=== PATIENT | male | born 1955 | race Caucasian/White ===

== ENCOUNTER → 2021-08-10 | Outpatient (CLI) | payer MEDICARE ==
--- NOTE | 2021-08-10 22:47 | CT ---
EXAMINATION TYPE: CT chest w con DATE OF EXAM: 08/10/2021 COMPARISON: None available HISTORY: CHEST PAIN CT DLP: 871.6 mGycm Automated exposure control for dose reduction was used. TECHNIQUE: CT scan of the chest is performed with IV Contrast, patient injected with 80ML mL of Isovue 300. FINDINGS: LUNGS: Extensive bilateral predominantly basal patchy areas of thick consolidation demonstrating grou ndglass opacity with air bronchogram within, associated with scattered multiple faint pulmonary nodul es most evident in the upper and midlung zones, mainly seen peripherally and of subcentimeter size. N o traction bronchiectasis, honeycombing or cystic changes. Patent trachea and main bronchi. No sizabl e pleural effusion. MEDIASTINUM: No gross cardiomegaly. Coronary and arterial atherosclerotic calcifications. The pulmona ry trunk measures 4.5 cm consistent with pulmonary hypertension. No pericardial effusion. 11 mm subca rinal lymph node with 11 mm precarinal retrocaval lymph node. Other scattered subcentimeter hilar and mediastinal lymph nodes. No pathologically enlarged axillary lymph nodes. OTHER: Previous cholecystectomy. Right lateral hepatic lobe marginally calcified area measuring 15 m m, incompletely characterized by this CT scan. Fatty infiltration of the pancreas. Atrophic right kid kel. Degenerative changes of the thoracic spine. No aggressive bone lesion. IMPRESSION: The above described extensive pulmonary changes are nonspecific and could be related to pulmonary inf ection (including atypical infection), organizing pneumonia, alveolar hemorrhage, alveolar proteinosi s, hypersensitivity pneumonitis among other pulmonary pathologies. Sequela of previous extensive infection and fibrotic changes can't be excluded. Recommend clinical co rrelation, further workup and pulmonology consultation. Follow-up CT scan in 3-6 months can be consid ered for reassessment. Other incidental findings as described above.
== END | disposition home or self-care (01) ==
LOC: RADCTMAIN 16:50
PROVIDERS: ATTEND Internal Medicine Critical Care Medicine
DX: R91.8 Other nonspecific abnormal finding of lung field (principal)
CPT/HCPCS: 82565; 84520; 71260; 36415; Q9967

== ENCOUNTER → 2021-09-03 | Outpatient (CLI) | payer MEDICARE | END | disposition home or self-care (01) | LOC: RADPETMAIN 13:07 | PROVIDERS: ATTEND Nurse Practitioner Adult Health | DX: Z53.9 Procedure and treatment not carried out, unspecified reason (principal) ==

== ENCOUNTER → 2021-09-11 | Outpatient (CLI) | payer MEDICARE ==
--- NOTE | 2021-09-12 22:28 | PE ---
EXAMINATION TYPE: PET CT fusion skull to thigh DATE OF EXAM: 09/11/2021 COMPARISON: Prior CT August 10, [address] April 16, 2021 HISTORY: Solitary pulmonary nodule. Abnormal CT. TECHNIQUE: Following the intravenous administration of 12.45 mCi of F-18 FDG, whole body images are performed from the skull base to the midthigh. Images are reviewed on the computer in the coronal, a xial, and sagittal planes. Reconstructed rotating images are created on independent workstation and reviewed on the computer. A localization and attenuation correction CT is performed in conjunction with the PET scan. The blood glucose level equals 156 SCAN: Initial Scan FINDINGS: Evaluation is suboptimal secondary to patient's large body habitus. SKULL BASE AND NECK: No areas of abnormal hypermetabolic uptake. CHEST, MEDIASTINUM, AND HILAR REGION: Continued improvement in peribronchial and bronchovascular cons olidations greatest in the lower lungs which became more diffuse groundglass opacities on last CT and current PET/CT. No areas of abnormal hypermetabolic uptake identified. ABDOMEN AND PELVIS: Normal excretion is present. No areas of abnormal hypermetabolic uptake. OSSEOUS STRUCTURES: No areas of abnormal hypermetabolic uptake. OTHER CT: Mild to moderate calcified plaque bilateral carotid bulb level. Moderate to severe three-ve ssel coronary artery calcification. Low lung volumes and cardiomegaly. Liver is diffusely low dense consistent with diffuse fatty infiltration. Cholecystectomy clips are pr esent. Thinning of right renal cortex with diminished size consistent with product of chronic medical renal disease. Enlarged prostate consistent with BPH. IMPRESSION: No areas of abnormal hypermetabolic uptake to suggest malignancy. Findings favor resolvin g postinflammatory or postinfectious etiology. Correlate clinically. Consider bronchoscopy evaluation to further evaluate.
== END | disposition home or self-care (01) ==
LOC: RADPETMAIN 08:33
PROVIDERS: ATTEND Nurse Practitioner Adult Health
DX: R91.8 Other nonspecific abnormal finding of lung field (principal)
CPT/HCPCS: 78815; A9552